=== PATIENT | male | born 1955 | race African-American/Black ===

== ENCOUNTER 2021-07-01 18:49 | Emergency (ER) | payer MEDICARE, OTHER ==
[2021-07-01 20:12] LABS: Mean Corpuscular HGB CONC 32.5 g/dL (32.0-36.0); Mean Corpuscular Hemoglobin 30.5 pg (27.0-31.0); Mean Corpuscular Volume 93.9 fL (78.0-98.0); Mean Platelet Volume 8.4 fL (7.4-10.4); Platelet Count 207 thou/uL (130-400); RBC Distribution Width 12.3 % (11.5-14.5); Red Blood Cell (RBC) Count 5.23 mill/uL (4.70-6.10); White Blood Cell (WBC) Count 5.3 thou/uL (4.8-10.8)
[2021-07-01 20:26] LABS: Band 5 % (5-11); Lymphocytes 37 % (21-51); MDiff Complete? YES; Monocytes 8 % (0-10); Neutrophil 48 % (42-75); Platelet Morphology Comment Appears Adequate; RBC Morphology Normal; Reactive Lymphocytes 2 % (0-10)
[2021-07-01 21:40] LABS: Albumin 3.5 g/dL (3.4-4.8)
[2021-07-01 21:41] LABS: Chloride 97 mmol/L (98-107); Potassium 3.9 mmol/L (3.5-5.1); Sodium 129 mmol/L (136-145)
[2021-07-01 21:42] LABS: Calcium 8.5 mg/dL (7.8-10.44); Glucose 80 mg/dL (80-115)
[2021-07-01 21:43] LABS: Globulin 3.7 g/dL (2.4-3.5); Protein, Total 7.2 g/dL (5.8-8.1)
[2021-07-01 21:44] LABS: Anion Gap 17 mmol/L (10-20); Bilirubin, Total 0.5 mg/dL (0.2-1.2); Carbon Dioxide 19 mmol/L (23-31)
[2021-07-01 21:45] LABS: Alkaline Phosphatase 114 U/L (40-110)
[2021-07-01 21:46] LABS: Calc. Creatinine Clearance 0 mL/min (70-130)
[2021-07-01 21:47] LABS: BUN (Urea Nitrogen) 8 mg/dL (8.4-25.7)
[2021-07-01 21:48] LABS: ALT (SGPT) 45 U/L (8-55); AST (SGOT) 53 U/L (5-34); Lipase 42 U/L (8-78)
[2021-07-02 02:13] LABS: SARS-CoV-2 PCR by NAA DETECTED (NotDetected)
== END 2021-07-01 22:30 | disposition home or self-care (01) ==
LOC: ERS 18:49
DX: U07.1 COVID-19 (principal); Z20.822 Contact with and (suspected) exposure to COVID-19
CPT/HCPCS: 80053; 83690; 85025; 87804 ×2; 99284; U0003; U0005; 36415